=== PATIENT | female | born 1980 | race Caucasian/White ===

== ENCOUNTER → 2024-03-05 | Outpatient (CLI) | payer OTHER ==
--- NOTE | 2024-03-28 20:12 | MM ---
Reason for Exam: Screening (asymptomatic). Last mammogram was performed 1 year(s) and 1 month(s) ago. Patient History: Menarche at age 14. First Full-Term at age 19. Maternal grandmother had breast cancer, age 37. Maternal aunt had breast cancer, age 60. Risk Values: Rena 5 year model risk: 0.5%. NCI Lifetime model risk: 7.1%. Tissue Density: The breasts are heterogeneously dense, which may obscure small masses. Findings: Analyzed By CAD. Increasing nodularity central left cc view middle depth, likely 6:00 position for which further evaluation is recommended. Otherwise, no significant change. Overall Assessment: Incomplete: need additional imaging evaluation, BI-RAD 0 Management: Special View Mammogram of the left breast. Diagnostic Breast Ultrasound of the left breast. . [facility] will attempt to contact patient to return for supplemental views and ultrasound if indicated. Electronically signed and approved by: Luis Armando Koo M.D. Radiologist
== END | disposition home or self-care (01) ==
LOC: RADMAMWWP 16:00
PROVIDERS: ATTEND Obstetrics & Gynecology
DX: Z12.31 Encounter for screening mammogram for malignant neoplasm of breast (principal); Z80.3 Family history of malignant neoplasm of breast; R92.333 Mammographic heterogeneous density, bilateral breasts
CPT/HCPCS: 77063; 77067

== ENCOUNTER → 2024-04-04 | Outpatient (CLI) | payer BC ==
--- NOTE | 2024-04-04 14:12 | MM ---
Reason for Exam: Additional evaluation requested from abnormal screening. Last screening mammogram was performed less than 1 month ago. Patient History: Menarche at age 14. First Full-Term at age 19. Maternal grandmother had breast cancer, age 37. Maternal aunt had breast cancer, age 60. Risk Values: Rena 5 year model risk: 0.5%. NCI Lifetime model risk: 7.1%. Prior Study Comparison: 05/13/2021 Bilateral Screening Mammogram, [facility]. 02/07/2023 Bilateral Screening Mammogram, [facility]. 03/05/2024 Bilateral MG 3D screening mammo w/cad, [facility]. Tissue Density: Left: The breasts are heterogeneously dense, which may obscure small masses. Findings: Analyzed By CAD. Mass in the left breast persists measuring up to 18 x 13 mm in the inferior posterior nipple line middle depth lower aspect probably at 6:00. Overall Assessment: Incomplete: need additional imaging evaluation, BI-RAD 0 Management: Diagnostic Breast Ultrasound of the left breast. Results were given to the patient verbally at the time of exam. Patient should continue monthly self-breast exams. A clinical breast exam by your physician is recommended on an annual basis. This exam should not preclude additional follow-up of suspicious palpable abnormalities. Note on Rena scores and lifetime risk: 1. A Rena score greater than 3% is considered moderate risk. If this is the case, consider specialist referral to assess eligibility for a risk reducing agent. 2. If overall lifetime risk for the development of breast cancer is 20% or higher, the patient may qualify for future screening with alternating mammogram and breast MRI. Electronically signed and approved by: Conner Silva DO
--- NOTE | 2024-04-04 14:48 | USB ---
Reason for Exam: Additional evaluation requested from abnormal screening. Patient History: Menarche at age 14. First Full-Term at age 19. Maternal grandmother had breast cancer, age 37. Maternal aunt had breast cancer, age 60. Risk Values: Rena 5 year model risk: 0.5%. NCI Lifetime model risk: 7.1%. Technique: Method: Targeted. Prior Study Comparison: 05/13/2021 Bilateral Screening Mammogram, [facility]. 02/07/2023 Bilateral Screening Mammogram, [facility]. 03/05/2024 Bilateral MG 3D screening mammo w/cad, [facility]. Findings: The lower section of the breast of the left breast, the axilla of the left breast and the retroareolar of the left breast were scanned. Technique utilized:US breast workup limited LT Image; Ultrasound imaging of: Area of concern, retroareolar region and axilla. Area of concern is compatible with mildly complex cyst with thin septation measuring 9 x 14 x 4 mm. At 5:00 5 cm from the nipple. Overall Assessment: Probably benign, BI-RAD 3 Management: Diagnostic Breast Ultrasound of the left breast in 6 months. A clinical breast exam by your physician is recommended on an annual basis and results should be correlated with mammographic findings. This exam should not preclude additional follow-up of suspicious palpable abnormalities. Results were given to the patient verbally at the time of exam. Electronically signed and approved by: Conner Silva DO
== END | disposition home or self-care (01) ==
LOC: RADMAMWWP 13:35
PROVIDERS: ATTEND Obstetrics & Gynecology
DX: R92.8 Other abnormal and inconclusive findings on diagnostic imaging of breast
CPT/HCPCS: 77061; 77065

== ENCOUNTER → 2024-10-08 | Outpatient (CLI) | payer BC ==
--- NOTE | 2024-10-08 11:23 | USB ---
Reason for Exam: Follow-up at short interval from prior study. Patient History: Menarche at age 14. First Full-Term at age 19. Maternal grandmother had breast cancer, age 37. Maternal aunt had breast cancer, age 60. Risk Values: Rena 5 year model risk: 0.5%. NCI Lifetime model risk: 7.1%. Technique: Method: Targeted. Prior Study Comparison: 02/07/2023 Bilateral Screening Mammogram, [facility] . 03/05/2024 Bilateral MG 3D screening mammo w/cad, [facility] 04/04/2024 Left MG 3D work up w/cad , [facility]. Findings: The lower section of the breast of the left breast, the axilla of the left breast and the retroareolar of the left breast were scanned. At The left 5:00 position there is a ovoid hypoechoic lesion with mural component likely reflecting adherent mucus measuring now 1.3 x 0.5 cm versus 1.4 x 0.4 cm. This likely reflects a mildly complex cyst. Continued follow-up is advised. No suspicious solid masses are identified at this time.. Overall Assessment: Probably benign, BI-RAD 3 Management: Diagnostic Breast Ultrasound of the left breast in 6 months. A clinical breast exam by your physician is recommended on an annual basis and results should be correlated with mammographic findings. This exam should not preclude additional follow-up of suspicious palpable abnormalities. Results were given to the patient verbally at the time of exam. [facility], , 10/08/2024 11:20 AM. Electronically signed and approved by: Manoj Marshall M.D. Radiologis
== END | disposition home or self-care (01) ==
LOC: RADUSWWP 10:57
PROVIDERS: ATTEND Obstetrics & Gynecology
DX: R92.8 Other abnormal and inconclusive findings on diagnostic imaging of breast (principal); N63.24 Unspecified lump in the left breast, lower inner quadrant; Z80.3 Family history of malignant neoplasm of breast